=== PATIENT | male | born 1985 | race Caucasian/White ===

== ENCOUNTER 2020-08-01 11:43 | Observation (INO) ==
[2020-08-01] MEDS ORDERED: LORazepam 1 MG TAB SL STA (12:34)
[2020-08-01] MEDS ORDERED: SODIUM CHLORIDE 0.9% 1000ML 1,000 ML IV ONE (12:34)
--- NOTE | 2020-08-01 12:54 | XRay Report ---
XR chest 1V portable CLINICAL HISTORY: dizzy VERTIGO COMPARISON STUDY: No previous studies for comparison. FINDINGS: The cardiac and mediastinal contours are normal. There is no evidence of focal pulmonary co nsolidation. There is no evidence of failure. No pleural effusions are visualized.[ IMPRESSION: No active disease in the chest. ACT 112: Negative or not required by law. Electronically signed by: Bull Lazcano M.D. 08/01/2020 12:53 PM
[2020-08-01 12:57] LABS: Basophils # (auto) 0.01 K/uL (0-0.2); Basophils % (auto) 0.2 %; Eosinophils # (auto) 0.02 K/uL (0-0.5); Eosinophils % (auto) 0.4 %; Hemoglobin 15.6 g/dL (14.0-18.0); Immature Granulocytes # (auto) 0.02 K/uL (0.00-0.02); Immature Granulocytes % (auto) 0.4 %; Lymphocytes % (auto) 18.4 %; Mean Corpuscular Hemoglobin 30.4 pg (25-34); Mean Corpuscular Hgb Conc 35.5 g/dL (32-36); Mean Corpuscular Volume 85.6 fL (80-100); Mean Platelet Volume 10.4 fL (7.4-10.4); Monocytes # (auto) 0.25 K/uL (0.11-0.59); Monocytes % (auto) 4.6 %; Neutrophils # (auto) 4.14 K/uL (1.4-6.5); Platelet Count 176 K/uL (130-400); RDW Coefficient of Variation 11.8 % (11.5-14.5); Red Blood Count 5.14 M/uL (4.7-6.1); White Blood Count 5.44 K/uL (4.8-10.8)
--- NOTE | 2020-08-01 12:58 | Emergency Department Note ---
History of Present Illness General Chief complaint: Vertigo Stated complaint: CHEST PAIN History of Present Illness Maximum Pain Intensity: 0 This patient is a 35-year-old male who presents ambulatory to the emergency department for evaluation of heart palpitations and headaches that started around 10:00 this morning. He had a similar episode last week. He denies any recent trauma. He denies any chest pain or shortness of breath. No recent illnesses reported. He denies any drug use. No fever reported. Prior to last week, he has never had similar episodes. Home Medications Medication Instructions Recorded Confirmed Type wkgbirv-styjvojvjxxme-hcbhtybd 1 tab PO Q6H PRN 08/01/20 08/01/20 History [Excedrin Migraine] Allergies Allergy/AdvReac Type Severity Reaction Status Date / Time No Known Allergies Allergy Unverified 08/01/20 14:09 Past Med/Surg History Medical History No pertinent past medical history Surgical History No pertinent past surgical history Family History Brother Hypertension onset at latest age 31 Brother Hypertension in 30s Denies family history of Kidney disease Social History Smoking Status: Never smoker Feels Safe at Home: Yes Review of Systems A total of 10 systems reviewed and were otherwise negative Physical Exam Vital Signs Vital Signs - 24 hr 08/01/20 11:45 08/01/20 12:07 08/01/20 12:30 Temperature 36.4 C L Temperature Source Temporal Artery Scan Pulse Rate 100 H 85 Pulse Rate [Apical] 93 H Pulse Rate from SpO2 Sensor 89 Respiratory Rate 18 17 18 Respiratory Effort / Characteristics Non-Labored Respiratory Depth Normal Blood Pressure 171/75 H 160/91 H Blood Pressure [Left Arm] 148/87 H Blood Pressure Mean 107 114 Blood Pressure Mean [Left Arm] 107 Pulse Oximetry 100 100 100 Oxygen Delivery Method Room Air Room Air Sepsis Recent Fever Within 48 Hours No Sepsis New/Unexplained Change in Mental Status No Sepsis Action Taken by Nursing No Action Required 08/01/20 13:00 08/01/20 14:12 08/01/20 14:30 Temperature Temperature Source Pulse Rate 70 83 86 Pulse Rate [Apical] Pulse Rate from SpO2 Sensor 71 84 84 Respiratory Rate 15 14 16 Respiratory Effort / Characteristics Respiratory Depth Blood Pressure 123/81 141/75 H 156/102 H Blood Pressure [Left Arm] Blood Pressure Mean 95 97 120 Blood Pressure Mean [Left Arm] Pulse Oximetry 99 97 98 Oxygen Delivery Method Room Air Room Air Room Air Sepsis Recent Fever Within 48 Hours Sepsis New/Unexplained Change in Mental Status Sepsis Action Taken by Nursing 08/01/20 15:00 08/01/20 15:30 08/01/20 16:00 Temperature Temperature Source Pulse Rate 94 H 83 84 Pulse Rate [Apical] Pulse Rate from SpO2 Sensor 95 H 82 86 Respiratory Rate 17 12 13 Respiratory Effort / Characteristics Respiratory Depth Blood Pressure 171/113 H 145/91 H 163/82 H Blood Pressure [Left Arm] Blood Pressure Mean 132 109 109 Blood Pressure Mean [Left Arm] Pulse Oximetry 100 98 97 Oxygen Delivery Method Room Air Room Air Sepsis Recent Fever Within 48 Hours Sepsis New/Unexplained Change in Mental Status Sepsis Action Taken by Nursing Constitutional WD/WN, vitals as above Slightly anxious in appearance. Eyes EOM intact bilaterally ENMT external ear and nose normal, oropharynx normal Neck trachea midline Respiratory normal respiratory effort, lungs clear to auscultation Cardiovascular RRR, no murmur, no edema Gastrointestinal (Abdomen) normal bowel sounds, soft, nontender, no hepatosplenomegaly Musculoskeletal no cyanosis or clubbing, extremities motor strength 5/5 Skin no rashes, warm and dry Neurologic Alert and oriented x3. Cranial nerves grossly intact. Cerebellar function intact. No focal motor deficits. Psychiatric Acting appropriately Course Course Patient was seen and examined Vital signs including blood pressure were reviewed medications list was verified with patient Labs were obtained, and a saline lock was established An order was placed for continuous cardiac monitoring. The monitor shows a rate of 85 with normal sinus rhythm." EKG was performed and reviewed. Imaging was performed and reviewed. The patient was medicated. Upon reevaluation, patient was slightly more comfortable. We discussed his results. He voiced understanding. The case was then discussed with pharmacy. She was started on sodium phosphate. I then discussed the case with my supervising physician in addition to the admitting team. They agreed to evaluate the patient for likely inpatient management Consultations Consultation #1: [facility] Administered Medications Sodium Phosphate 30 mmol/ (Sodium Chloride) 510 mls @ 102 mls/hr IV NOW ONE Stop: 08/01/20 19:14 Last Admin: 08/01/20 14:45 Dose: 102 mls/hr Documented by: [id number] Discontinued Medications Sodium Chloride (Nss 1000ml) 1,000 mls @ 999 mls/hr IV .Q1H1M ONE Stop: 08/01/20 13:34 Last Infusion: 08/01/20 13:56 Dose: 0 mls/hr Documented by: [id number] Admin: 08/01/20 12:55 Dose: 999 mls/hr Documented by: [id number] Ioversol (Optiray 320 125ml) 104 ml IV ONCE ONE Stop: 08/01/20 13:33 Last Admin: 08/01/20 13:33 Dose: 104 ml Documented by: [id number] Lorazepam (Lorazepam 1 Mg Tab) 1 mg SL NOW STA Stop: 08/01/20 12:35 Last Admin: 08/01/20 12:55 Dose: 1 mg Documented by: [id number] Medical Decision Making Medical Records Attestation: I reviewed the patient's medical records. Home Medications Current Medication List: was personally reviewed by me Laboratory Data Attestation: I reviewed the patient's lab results. Result diagrams: 08/01/20 12:20 08/01/20 12:20 Lab Results 08/01/20 08/01/20 08/01/20 Range/Units 12:20 12:20 12:20 WBC 5.44 (4.8-10.8) K/uL RBC 5.14 (4.7-6.1) M/uL Hgb 15.6 (14.0-18.0) g/dL Hct 44.0 (42-52) % MCV 85.6 (80-100) fL MCH 30.4 (25-34) pg MCHC 35.5 (32-36) g/dL RDW Std Deviation 37.0 (36.4-46.3) fL RDW Coeff of Theodore 11.8 (11.5-14.5) % Plt Count 176 (130-400) K/uL MPV 10.4 (7.4-10.4) fL Immature Gran % (Auto) 0.4 % Neut % (Auto) 76.0 % Lymph % (Auto) 18.4 % [place] % (Auto) 4.6 % Eos % (Auto) 0.4 % Baso % (Auto) 0.2 % Neut # (Auto) 4.14 (1.4-6.5) K/uL Lymph # (Auto) 1.00 L (1.2-3.4) K/uL [place] # (Auto) 0.25 (0.11-0.59) K/uL Eos # (Auto) 0.02 (0-0.5) K/uL Baso # (Auto) 0.01 (0-0.2) K/uL Immature Gran # (Auto) 0.02 (0.00-0.02) K/uL PT 10.5 (9.0-12.0) Seconds INR 1.0 (0.9-1.1) Sodium 138 (136-145) mmol/L Potassium 4.2 (3.5-5.1) mmol/L Chloride 107 (98-107) mmol/L Carbon Dioxide 24 (21-32) mmol/L Anion Gap 7.0 (3-11) BUN 14 (7-18) mg/dl Creatinine 1.33 (0.6-1.4) mg/dl Est Cr Clr Drug Dosing 92.5 ml/min Est GFR ( Amer) 79.7 Est GFR (Non-Af Amer) 68.8 BUN/Creatinine Ratio 10.4 (10-20) Glucose 148 H (70-99) mg/dl Calcium 9.1 (8.5-10.1) mg/dl Phosphorus 0.7 L* (2.5-4.9) mg/dl Magnesium 1.7 L (1.8-2.4) mg/dl Total Bilirubin 0.5 (0.2-1) mg/dl AST 25 (15-37) U/L ALT 38 (12-78) U/L Alkaline Phosphatase 80 (45-117) U/L Total Creatine Kinase (39-308) U/L Troponin I 0.050 H* (0-0.045) ng/ml Total Protein 7.0 (6.4-8.2) gm/dl Albumin 4.0 (3.4-5.0) gm/dl Globulin 3.0 (2.5-4.0) gm/dl Albumin/Globulin Ratio 1.3 (0.9-2) TSH 2.140 (0.300-4.500) uIu/ml COVID-19 Eval Order SARS-CoV-2 (PCR) (Negative) Influenza Type A (PCR) (Neg) Influenza Type B (PCR) (Neg) RSV (RT-PCR) (Neg) 08/01/20 08/01/20 08/01/20 Range/Units 12:20 14:14 14:14 WBC (4.8-10.8) K/uL RBC (4.7-6.1) M/uL Hgb (14.0-18.0) g/dL Hct (42-52) % MCV (80-100) fL MCH (25-34) pg MCHC (32-36) g/dL RDW Std Deviation (36.4-46.3) fL RDW Coeff of Theodore (11.5-14.5) % Plt Count (130-400) K/uL MPV (7.4-10.4) fL Immature Gran % (Auto) % Neut % (Auto) % Lymph % (Auto) % [place] % (Auto) % Eos % (Auto) % Baso % (Auto) % Neut # (Auto) (1.4-6.5) K/uL Lymph # (Auto) (1.2-3.4) K/uL [place] # (Auto) (0.11-0.59) K/uL Eos # (Auto) (0-0.5) K/uL Baso # (Auto) (0-0.2) K/uL Immature Gran # (Auto) (0.00-0.02) K/uL PT (9.0-12.0) Seconds INR (0.9-1.1) Sodium (136-145) mmol/L Potassium (3.5-5.1) mmol/L Chloride (98-107) mmol/L Carbon Dioxide (21-32) mmol/L Anion Gap (3-11) BUN (7-18) mg/dl Creatinine (0.6-1.4) mg/dl Est Cr Clr Drug Dosing ml/min Est GFR ( Amer) Est GFR (Non-Af Amer) BUN/Creatinine Ratio (10-20) Glucose (70-99) mg/dl Calcium (8.5-10.1) mg/dl Phosphorus (2.5-4.9) mg/dl Magnesium (1.8-2.4) mg/dl Total Bilirubin (0.2-1) mg/dl AST (15-37) U/L ALT (12-78) U/L Alkaline Phosphatase (45-117) U/L Total Creatine Kinase 214 (39-308) U/L Troponin I (0-0.045) ng/ml Total Protein (6.4-8.2) gm/dl Albumin (3.4-5.0) gm/dl Globulin (2.5-4.0) gm/dl Albumin/Globulin Ratio (0.9-2) TSH (0.300-4.500) uIu/ml COVID-19 Eval Order CovFluRsv at [facility] SARS-CoV-2 (PCR) NEGATIVE (Negative) Influenza Type A (PCR) Negative (Neg) Influenza Type B (PCR) Negative (Neg) RSV (RT-PCR) Negative (Neg) Imaging Data Attestation: I personally reviewed and interpreted this imaging study as follows: Radiologist's Impression: Head CTA 08/01/20 12:34 CT angio head wo/w CT DOSE: 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 CT angiography was then performed a dynamic helical fashion during intravenous administration of 104 cc of Optiray 320. MIP images were acquired. A dose lowering technique was utilized adhering to the principles of ALARA. COMPARISON STUDY: None. FINDINGS: The noncontrast head CT, there are no intra or extra-axial mass lesions. There is no CT evidence of acute cortical infarction. There is no midline shift. There is no acute hemorrhage. There are no calvarial fractures. There is no hydrocephalus. There is no evidence of acute sinusitis. CT angiographic images reveal no evidence for aneurysm. There are no major intracranial branch occlusions. There is no evidence of intracranial stenosis. There is no evidence of dural venous sinus thrombosis. IMPRESSION: 1. Normal study ACT 112: Negative or not required by law. Electronically signed by: Bull Lazcano M.D. 08/01/2020 1:47 PM Neck CTA 08/01/20 12:34 CT angio neck with con CLINICAL HISTORY: Dizziness, headache. COMPARISON STUDY: No previous studies for comparison. TECHNIQUE: CT angiography was performed from the aortic arch to the skull base. MIP imaging was performed. The patient was scanned in a dynamic helical fashion during intravenous administration of 104 cc of Optiray. A dose lowering technique was utilized adhering to the principles of ALARA. CT DOSE: 1220.88 mGy.cm Technique: CT angiogram of the carotid and vertebral arteries was obtained using intravenous contrast and 3-D reconstruction. NASCET criteria was utilized. Findings: The right carotid revealed no evidence of aneurysm and no evidence of dissection. There is no evidence of hemodynamic significant stenosis. The left carotid revealed no evidence of hemodynamic significant stenosis. There is no evidence of aneurysm. There is no evidence of dissection. There is no evidence of hemodynamically significant vertebral stenosis. There is no evidence of vertebral dissection. IMPRESSION: No evidence of hemodynamically significant carotid or vertebral artery stenosis. No evidence of dissection. ACT 112: Negative or not required by law. Electronically signed by: Bull Lazcano M.D. 08/01/2020 1:44 PM Chest X-Ray 08/01/20 12:36 XR chest 1V portable CLINICAL HISTORY: dizzy VERTIGO COMPARISON STUDY: No previous studies for comparison. FINDINGS: The cardiac and mediastinal contours are normal. There is no evidence of focal pulmonary consolidation. There is no evidence of failure. No pleural effusions are visualized.[ IMPRESSION: No active disease in the chest. ACT 112: Negative or not required by law. Electronically signed by: Bull Lazcano M.D. 08/01/2020 12:53 PM ECG Data Attestation: I personally reviewed and interpreted this ECG as follows: Indication: + palpitations Rate (beats per minute): 95 Rhythm: + normal sinus Additional Comments: Slight ST depression noted in lead III and aVF. No ectopy noted. No prior for comparison. Blood Pressure Blood Pressure Findings: Elevated blood pressure Blood Pressure Disposition: elevated BP felt to be situational MDM Narrative Differential diagnosis: Intracranial abnormality, aneurysm, cardiac arrhythmia, electrolyte abnormality, dehydration, anxiety, cardiac ischemia, among others were considered This patient is a 35-year-old male who presents emergency department complaining of heart palpitations and intermittent headaches over the last week. On exam, he was slightly hypertensive. Otherwise, his vital signs were stable. He was neurovascularly intact. Labs were performed. The patient's phosphorus is significantly low as it is troponin was slightly elevated. EKG shows slightly abnormalities in the inferior leads. Imaging was unremarkable. No prior for comparison. I did not feel comfortable sending this patient home. The patient will be evaluated for likely inpatient management. [place] stable in the em ergency department. Impression & Plan Heart palpitations, Headache, Hypophosphatemia Discharge Plan Visit Data Chief Complaint: Vertigo Stated Complaint: CHEST PAIN ED Provider: Chau Knutson ED Midlevel Provider: Jemma Owusu Discharge Problem: Heart palpitations, Headache, Hypophosphatemia Patient Disposition: Admitted As Inpatient Condition: Fair Forms Stand Alone Forms: [email or web address] Prescriptions Prescriptions: No Action Excedrin Migraine 250-250-65 mg Tablet 1 tab PO Q6H PRN (Reason: Headache) RF: 0 Referrals Referrals: Waldo Santillan MD [Primary Care Provider] -
[2020-08-01 13:03] LABS: BUN Creatinine Ratio 10.4 (10-20); Calcium 9.1 mg/dl (8.5-10.1); Creatinine Clr Calc Pharmacy 92.5 ml/min; Est GFR (African American) 79.7; Est GFR (Non-African American) 68.8; Magnesium 1.7 mg/dl (1.8-2.4); Potassium 4.2 mmol/L (3.5-5.1)
[2020-08-01 13:08] LABS: Prothrombin Time 10.5 Seconds (9.0-12.0)
[2020-08-01 13:24] LABS: Albumin Globulin Ratio 1.3 (0.9-2); Bilirubin,Total 0.5 mg/dl (0.2-1); Phosphorus 0.7 mg/dl (2.5-4.9); Thyroid Stimulating Hormone 2.14 uIu/ml (0.300-4.500); Troponin I 0.05 ng/ml (0-0.045)
[2020-08-01] MEDS ORDERED: OPTIRAY 320 125ml IV ONE (13:32)
--- NOTE | 2020-08-01 13:45 | CT Scan Report ---
CT angio neck with con CLINICAL HISTORY: Dizziness, headache. COMPARISON STUDY: No previous studies for comparison. TECHNIQUE: CT angiography was performed from the aortic arch to the skull base. MIP imaging was perfo rmed. The patient was scanned in a dynamic helical fashion during intravenous administration of 104 c c of Optiray. A dose lowering technique was utilized adhering to the principles of ALARA. CT DOSE: 1220.88 mGy.cm Technique: CT angiogram of the carotid and vertebral arteries was obtained using intravenous contrast and 3-D reconstruction. NASCET criteria was utilized. Findings: The right carotid revealed no evidence of aneurysm and no evidence of dissection. There is no evidenc e of hemodynamic significant stenosis. The left carotid revealed no evidence of hemodynamic significant stenosis. There is no evidence of an eurysm. There is no evidence of dissection. There is no evidence of hemodynamically significant vertebral stenosis. There is no evidence of verte bral dissection. IMPRESSION: No evidence of hemodynamically significant carotid or vertebral artery stenosis. No evidence of disse ction. ACT 112: Negative or not required by law. Electronically signed by: Bull Lazcano M.D. 08/01/2020 1:44 PM
--- NOTE | 2020-08-01 13:48 | CT Scan Report ---
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 CT angiography was then performed a dynamic hel ical fashion during intravenous administration of 104 cc of Optiray 320. MIP images were acquired. A dose lowering technique was utilized adhering to the principles of ALARA. COMPARISON STUDY: None. FINDINGS: The noncontrast head CT, there are no intra or extra-axial mass lesions. There is no CT evidence of a cute cortical infarction. There is no midline shift. There is no acute hemorrhage. There are no rambo rial fractures. There is no hydrocephalus. There is no evidence of acute sinusitis. CT angiographic images reveal no evidence for aneurysm. There are no major intracranial branch occlus ions. There is no evidence of intracranial stenosis. There is no evidence of dural venous sinus throm bosis. IMPRESSION: 1. Normal study ACT 112: Negative or not required by law. Electronically signed by: Bull Lazcano M.D. 08/01/2020 1:47 PM
[2020-08-01] MEDS ORDERED: SODIUM PHOSPHATE 30 MMOL in SODIUM CHLORIDE 0.9% 500 ML IV ONE (14:15)
[2020-08-01 15:15] LABS: Influenza A virus by PCR Negative (Neg); Influenza B virus by PCR Negative (Neg); RSV by PCR Negative (Neg); SARS CoV2 RNA(COVID-19) InHosp NEGATIVE (Negative)
--- NOTE | 2020-08-01 15:32 | History & Physical Report ---
Date of Service August 01, 2020 Assessment & Plan (1) Heart palpitations: (2) Chest heaviness: (3) Headache: (4) Hypomagnesemia: (5) Hypophosphatemia: (6) Lymphopenia: (7) DVT prophylaxis: Patient will be inpatient status, a 2D echo has been ordered, repeat EKG in the morning, free T3 and T4, vitamin D level, urinalysis, serial troponins, replete magnesium and phosphorus, nephrology and cardiology consult, tickborne illness titers, as needed propranolol, SCDs and subcu heparin. Physical Exam Gen-AAO x 3, NAD, Afebrile, very fit Head-NCAT, EOMI, PERRLA, Anicteric Sclera, No Posterior Pharyngeal Erythema Neck-Supple, No JVD, No Thyromegaly, No Masses, No LAD, No Bruits Lungs-Clear to Auscultation Bilaterally, No Rales, No Rhonchi, No Wheezing, No Crepitus Chest-No S4, +S1, +S2, No S3, No Murmurs, No Rubs, No Gallops, No Ectopy Abdomen-Soft, Bowel Sounds Present, Non Tender, Non Distended, No Hepatomegaly, No Splenomegaly, No Palpable Masses, No Rebound, No Rigidity, No Guarding Musculoskeletal-Full Range of Motion Bilaterally, No CVAT Extremities-No Cyanosis, No Clubbing, No Edema Nuero-Cranial Nerves II-XII grossly intact, Motor WNL, DTRs WNL, Strength WNL, Non Focal Psych-Normal Mood, does not seem anxious to me History of Present Illness Chief Complaint: Palpitations and chest heaviness Primary Care Provider: Waldo Santillan MD 34-year-old male with no significant past medical history presents with palpitations and chest heaviness. He says it began about 2 weeks ago when he gets these "attacks" where he feels his heart racing, and chest heaviness. On occasion he wakes up sweaty, short of breath, and with a racing heart. He says he feels it in his eyes, neck, fingers, and he feels like his heart is beating out of his chest. He says his pulse is usually generally low because he works out frequently. Occasionally he takes Unisom as a sleep aid otherwise does not take anything else. He plays soccer twice a week for an hour to an hour and a half, frequently exercises, does yoga, denies any family history of arrhythmias and he notes that he has headache in both temples when he has these attacks. Of note in the ER he was found to have a phosphorus of 0.7 and his magnesium was slightly below the low normal. Past medical historynone Past surgical historynone Family historymother is alive with hypothyroidism, father is alive and has had a recent stroke, hyperlipidemia, and hypertension, he has 4 brothers of which some have hypertension, he has 2 healthy daughters Social historyhe rarely drinks alcohol, he does not smoke, no drug use, no supplements, no energy drinks, eats a normal healthy diet. He is and his is at the bedside. He has a PhD in engineering. 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 Allergies Allergy/AdvReac Type Severity Reaction Status Date / Time No Known Allergies Allergy Unverified 08/01/20 14:09 Home Medications Medication Instructions Recorded Confirmed Type rkeadsk-zomnuljqdynps-ropoxoru 1 tab PO Q6H PRN 08/01/20 08/01/20 History [Excedrin Migraine] Past Med/Surg History Medical History No pertinent past medical history Social History Smoking Status: Never smoker Feels Safe at Home: Yes Review of Systems Review of Systems: ROS-positive bitemporal headaches during these attacks , positive visual Changes during attacks, No Nausea, No Vomiting, No Fever, No Chills, No Neck Pain or Stiffness, positive chest heaviness during attacks, positive palpitations, positive SOB, No VALENCIA, No Cough, No Sputum, No Wheezing, No Abdominal Pain, he noted an episode of diarrhea, No Hematemesis, No Hemopt ysis, No Unexpected Weight Loss, No Flank pain, No Melena, No Hematochezia, No Frequency, No Urgency, No Burning, No Hematuria, No Rashes, No Diaphoresis. Appetite is Normal Physical Exam Physical Exam: Physical Exam Gen-AAO x 3, NAD, Afebrile, very fit Head-NCAT, EOMI, PERRLA, Anicteric Sclera, No Posterior Pharyngeal Erythema Neck-Supple, No JVD, No Thyromegaly, No Masses, No LAD, No Bruits Lungs-Clear to Auscultation Bilaterally, No Rales, No Rhonchi, No Wheezing, No Crepitus Chest-No S4, +S1, +S2, No S3, No Murmurs, No Rubs, No Gallops, No Ectopy Abdomen-Soft, Bowel Sounds Present, Non Tender, Non Distended, No Hepatomegaly, No Splenomegaly, No Palpable Masses, No Rebound, No Rigidity, No Guarding Musculoskeletal-Full Range of Motion Bilaterally, No CVAT Extremities-No Cyanosis, No Clubbing, No Edema Nuero-Cranial Nerves II-XII grossly intact, Motor WNL, DTRs WNL, Strength WNL, Non Focal Psych-Normal Mood, does not seem anxious to me Results & Data Results & Data ([facility]) Vital Signs (Past 12 Hours) Vital Signs Temp Pulse Pulse Resp BP BP Pulse Ox 08/01/20 14:30 86 16 156/102 H 98 08/01/20 14:12 83 14 141/75 H 97 08/01/20 13:00 70 15 123/81 99 08/01/20 12:30 85 18 160/91 H 100 08/01/20 12:07 93 H 17 148/87 H 100 08/01/20 11:45 36.4 C L 100 H 18 171/75 H 100 Allergies No Known Allergies Allergy (Unverified 08/01/20 14:09) Height/Weight/Isolation Height 6 ft Weight 94.4 kg Chemistry 08/01/20 12:20 Sodium 138 Potassium 4.2 Chloride 107 Carbon Dioxide 24 Anion Gap 7.0 BUN 14 Creatinine 1.33 Glucose 148 H Code Status & VTE Plan Code Status Full VTE Prophylaxis Plan VTE Prophylaxis will be ordered: Yes
--- NOTE | 2020-08-01 16:34 | Nephrology Consultation ---
Date of Consultation August 01, 2020 Assessment & Plan (1) Hypophosphatemia: getting appropriate IV repletion. no clear cause in hx -will check renal osteodystrophy labs, fractional excretion of phos, sed rate -will recheck phos, mag, bmp later today -await cardiology comment; keep on heart monitor -ABG if hypophosphatemia not improving or of any tachypnea or hypoxia -recommend regular diet Present on Admission?: Yes (2) Hypomagnesemia: mag 1.7 > recheck ordered for 2000 Present on Admission?: Yes (3) Hypertension: may be situational and/or w/ lots of recent aspirin dosing and L NS on board. strong FH of premature HTN. he had a L of NS in ER -consider low dose beta will if persistent or if symptoms such as chest heaviness, confusion, focal numbness/weakness -- none currently -abd ultrasound to evaluate aorta ordered as well as proteinuria screen -- latter will be most useful if negative Present on Admission?: Yes (4) Heart palpitations: History of Present Illness Reason for Consultation: hypophosphatemia Requesting Physician: Dr Burton Attending Physician: Dr Burton History of Present Illness 35 y/o M whom I'm asked to see for hypophosphatemia after he came to the ER b/c he had heart palpitations with chest heaviness and a spell of feeling cold, clammy, and "close to losing consciousness" a few times this morning. Noted on arrival to have phos 0.7, mag 1.7, and otherwise essentially normal labs. Had a similar episode about 2 wks back which woke him from sleep. Has also been having "weird" and "bizarre" sensations on his head which he describes at times as headache but later states he's not happy w/ that description >> these have been happening daily and are 3-4 cm above his temples BL. not a/w nausea, photophobia, not waking him from sleep, not radiating > he has been taking between 1-4 excedrine migraine for this but only real relief he gets is w/ sleep. No significant PMH; has never stayed overnight is hospital, never had general anesthesia; takes no OP meds or supplements. He has never broken a bone apart from staving a finger once. No hx of kidney stones, thyroid issues; no chronic diarrhea or digestive issues though he did have a bout of diarrhea about a week ago for 3 days. He does not restrict his diet particularly and pretty much eats what his small children at home eat. He has been trying to drink more water lately though and to eat more bananas. He has 4 brothers 2 of whom were diagnosed with hypertension in their 30s. No FH of bone or metabolic diseases. 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 His is at bedside. He is getting IV phos as I evaluate him and feels a bit improved. Allergies Allergy/AdvReac Type Severity Reaction Status Date / Time No Known Allergies Allergy Unverified 08/01/20 14:09 Home Medications Medication Instructions Recorded Confirmed Type [id number] 1 tab PO Q6H PRN 08/01/20 08/01/20 History [Excedrin Migraine] Patient History Medical History (Updated 08/01/20 @ 16:27 by Zoë Torres MD, PhD) No pertinent past medical history Surgical History (Updated 08/01/20 @ 16:23 by Zoë Torres MD, PhD) No pertinent past surgical history Family History (Updated 08/01/20 @ 16:22 by Zoë Torres MD, PhD) Brother Hypertension onset at latest age 31 Brother Hypertension in 30s Denies family history of Kidney disease Social History Smoking Status: Never smoker Feels Safe at Home: Yes Review of Systems Review of Systems: All systems reviewed & are unremarkable except as noted in HPI & below Physical Exam Constitutional: well developed, well nourished, + acute distress (mild frustration/anxiety/irritability) and comfortable Eyes: EOM intact bilaterally ENMT: Ears: no external ear abnormality Nose: no external nose abnormality Mouth: oral mucous membranes not dry Neck: no nuchal rigidity Respiratory: normal respiratory effort Auscultation: lungs clear to auscultation bilaterally and + diminished lung sounds Cardiovascular: RRR, no murmur, no edema (hyperdynamic) Vessels: normal peripheral pulses, abdominal aortic pulse present and dorsalis pedis pulses present; no abdominal aortic bruit, no renal bruit and no temporal artery tenderness Extremities: normal capillary refill Gastrointestinal (Abdomen): Inspection/Auscultation: normal bowel sounds; abdomen not distended Percussion/Palpation: abdomen soft; abdomen nontender pulsatile area midline 4 cm epigastium Musculoskeletal: Extremities: strength 5/5 throughout Skin: no rashes, warm and dry Neurologic: webster, fluent speech, no tremor Psychiatric: Orientation: alert and oriented x 3 Eye Contact: good eye contact Speech: normal rate/rhythm/volume of speech Affect: + anxious affect Insight: good insight Judgement: good judgement Results & Data ([facility]) Vital Signs (Past 12 Hours) Vital Signs Temp Pulse Pulse Resp BP BP Pulse Ox 08/01/20 16:00 84 13 163/82 H 97 08/01/20 15:30 83 12 145/91 H 98 08/01/20 15:00 94 H 17 171/113 H 100 08/01/20 14:30 86 16 156/102 H 98 08/01/20 14:12 83 14 141/75 H 97 08/01/20 13:00 70 15 123/81 99 08/01/20 12:30 85 18 160/91 H 100 08/01/20 12:07 93 H 17 148/87 H 100 08/01/20 11:45 36.4 C L 100 H 18 171/75 H 100 Laboratory Results 08/01/20 12:20 08/01/20 12:20 and as above Diagnostic Findings head and neck CT angio unremarkable as is CXR
[2020-08-01] MEDS ORDERED: ONDANSETRON INJ 2 MG/ML 2 ML VIAL IV PRN (17:55)
[2020-08-01] MEDS ORDERED: LORazepam 0.5 MG TAB PO PRN (17:55)
[2020-08-01] MEDS ORDERED: PROPRANOLOL HCL 10 MG TAB PO PRN (17:55)
[2020-08-01] MEDS ORDERED: ACETAMINOPHEN 325 MG TAB PO PRN (17:55)
[2020-08-01] MEDS ORDERED: MAGNESIUM SULFATE / D5W 1 GM/100 ML BAG IV ONE (18:15)
[2020-08-01 18:54] LABS: BUN Creatinine Ratio 9.3 (10-20); Calcium 8.8 mg/dl (8.5-10.1); Creatinine Clr Calc Pharmacy 103.3 ml/min; Est GFR (African American) 91.2; Est GFR (Non-African American) 78.7; Potassium 3.9 mmol/L (3.5-5.1)
[2020-08-01 19:00] LABS: T4 Free Thyroxine 1.04 ng/dl (0.8-1.6); Troponin I 0.067 ng/ml (0-0.045)
[2020-08-01 19:03] LABS: T3 Free 3.6 pg/ml (2.3-4.2); Vitamin D, 25 Hydrox 26.1 ng/ml (30-100)
[2020-08-01 19:11] LABS: Lyme Ab IgG w/WB Rflx Negative (Negative); Lyme Ab IgM w/WB Rflx Negative (Negative)
[2020-08-01 19:34] LABS: Phosphorus 4.2 mg/dl (2.5-4.9)
--- NOTE | 2020-08-01 20:09 | Ultrasound Report ---
US AAA screening CLINICAL HISTORY: AAA screening COMPARISON STUDY: No previous studies for comparison. FINDINGS: There is no evidence of abdominal aortic aneurysm. The maxillary diameter is 2.5 cm. There is no evid ence for iliac artery aneurysm. Peak systolic velocity within the aorta was 139 cm/s. IMPRESSION: No evidence of abdominal aortic aneurysm. ACT 112: Negative or not required by law. Electronically signed by: Bull Lazcano M.D. 08/01/2020 8:07 PM
[2020-08-01 20:11] LABS: Appearance Urine Clear (Clear); Bilirubin Urine Negative (Negative); Blood Urine Negative (Negative); Color Urine Yellow; Glucose Urine UA Negative (Negative); Ketones Urine Negative (Negative); Leukocyte Esterase Urine Negative (Negative); Nitrite Urine Negative (Negative); Protein Urine Negative (Negative); Specific Gravity Urine 1.032 (1.000-1.030); Urobilinogen Urine Negative (Negative); pH Urine 7.5 (4.5-7.5)
[2020-08-01 20:31] LABS: Creatinine Urine Random 98.2 mg/dl; Protein Creatinine Ratio Urine 0.1 (0-0.2); Total Protein Urine Random 12.6 mg/dl (0-11.9)
[2020-08-01 20:32] LABS: Phosphorus Urine Random > 90.0 mg/dl
[2020-08-01] MEDS: MAGNESIUM OXIDE 400 MG TAB PO SCH (20:32)
[2020-08-01] MEDS: HEPARIN SOD 5,000 UNIT/0.5 ML VIAL SQ SCH (20:33)
[2020-08-02] MEDS: HEPARIN SOD 5,000 UNIT/0.5 ML VIAL SQ SCH (06:24)
--- NOTE | 2020-08-02 07:54 | Hospitalist Progress Note ---
Date of Service August 02, 2020 Assessment & Plan (1) Heart palpitations: (2) Chest heaviness: (3) Headache: (4) Hypomagnesemia: (5) Hypophosphatemia: (6) Lymphopenia: (7) DVT prophylaxis: Patient will be inpatient status, a 2D echo pending, monitor checks OK, repeat EKG today, free T3 and T4, vitamin D level is low, PTH elevated, urinalysis, serial troponins, replete magnesium and phosphorus, nephrology and cardiology on case, tickborne illness titers, as needed propranolol, SCDs and subcu heparin. Add Vit D3 5,000 IU Daily Feels fine today, went over results so far. Labs Checked Physical Exam Gen-AAO x 3, NAD, Afebrile, very fit Head-NCAT, EOMI, PERRLA, Anicteric Sclera, No Posterior Pharyngeal Erythema Neck-Supple, No JVD, No Thyromegaly, No Masses, No LAD, No Bruits Lungs-Clear to Auscultation Bilaterally, No Rales, No Rhonchi, No Wheezing, No Crepitus Chest-No S4, +S1, +S2, No S3, No Murmurs, No Rubs, No Gallops, No Ectopy Abdomen-Soft, Bowel Sounds Present, Non Tender, Non Distended, No Hepatomegaly, No Splenomegaly, No Palpable Masses, No Rebound, No Rigidity, No Guarding Musculoskeletal-Full Range of Motion Bilaterally, No CVAT Extremities-No Cyanosis, No Clubbing, No Edema Nuero-Cranial Nerves II-XII grossly intact, Motor WNL, DTRs WNL, Strength WNL, Non Focal Psych-Normal Mood, does not seem anxious to me Admission and Anticipated Discharge Date Admission Date: August 01, 2020 Results & Data Results & Data ([facility]) Vital Signs (Past 12 Hours) Vital Signs Temp Pulse Pulse Resp BP Pulse Ox 08/02/20 03:48 36.5 C 62 16 132/66 99 08/01/20 23:10 36.6 C 69 16 132/70 98 08/01/20 22:20 60
[2020-08-02] MEDS: MAGNESIUM OXIDE 400 MG TAB PO SCH (08:00)
[2020-08-02 08:01] LABS: Hematocrit (blood only) 44.5 % (42-52); Hemoglobin 15.5 g/dL (14.0-18.0); Mean Corpuscular Hemoglobin 30.6 pg (25-34); Mean Corpuscular Hgb Conc 34.8 g/dL (32-36); Mean Corpuscular Volume 87.9 fL (80-100); Mean Platelet Volume 10.3 fL (7.4-10.4); Platelet Count 167 K/uL (130-400); RDW Coefficient of Variation 12.3 % (11.5-14.5); RDW Standard Deviation 39.2 fL (36.4-46.3); Red Blood Count 5.06 M/uL (4.7-6.1); White Blood Count 4.48 K/uL (4.8-10.8)
[2020-08-02 08:22] LABS: Albumin Level 3.9 gm/dl (3.4-5.0); BUN Creatinine Ratio 10.5 (10-20); Calcium 9.3 mg/dl (8.5-10.1); Creatinine Clr Calc Pharmacy 109.8 ml/min; Est GFR (African American) 98.1; Est GFR (Non-African American) 84.7; Magnesium 2.4 mg/dl (1.8-2.4)
[2020-08-02 08:27] LABS: Albumin Globulin Ratio 1.4 (0.9-2); Bilirubin,Total 0.6 mg/dl (0.2-1); Globulin 2.8 gm/dl (2.5-4.0); Total Protein 6.7 gm/dl (6.4-8.2)
[2020-08-02] MEDS ORDERED: CHOLECALCIFEROL 1,000 UNITS 25 MCG TAB PO SCH (09:00)
--- NOTE | 2020-08-02 10:45 | Cardiology Consultation ---
Date of Consultation August 02, 2020 Assessment & Plan (1) Heart palpitations: On telemetry the patient has had no arrhythmias thus far. His echocardiogram reveals an anatomically normal heart. (2) Troponin level elevated: The patient troponin are just borderline elevated and after a series of 4 there is been no significant increase or decline that would indicate this to be acute coronary syndrome. His EKG is normal today. I think that this is a type II presentation. I would not recommend heparin at this time. With the patient's history of arrhythmias he could have a long-term event monitor after discharge. At this time I would recommend no additional cardiac testing. (3) Hypophosphatemia: This needs to be worked up and may actually be the principal reason for the patient's presentation. He may have a parathyroid abnormality with low phosphorus and vitamin D and an elevated PTH. History of Present Illness Attending Physician: El Burton DO History of Present Illness This is a healthy 35-year-old male patient who has a vigorous routine exercise program. He has minimal past medical history. Minimal risk factors for heart disease. He denies hypertension, diabetes, hypercholesterolemia or cigarette smoking. Over the past several weeks he has not felt well. He is had a racing heart and dizziness at times. He was brought to the emergency department by his after an episode of tachycardia and dizziness. After admission he is noted to have low phosphorus and vitamin D levels with an elevated PTH level. His EKG shows no acute changes. Cardiac markers are negative. Echocardiogram completed this admission shows essentially an anatomically normal heart. Allergies Allergy/AdvReac Type Severity Reaction Status Date / Time No Known Allergies Allergy Unverified 08/01/20 14:09 Home Medications Medication Instructions Recorded Confirmed Type [id number] 1 tab PO Q6H PRN 08/01/20 08/01/20 History [Excedrin Migraine] Patient History Medical History No pertinent past medical history Surgical History No pertinent past surgical history Family History Brother Hypertension onset at latest age 31 Brother Hypertension in 30s Denies family history of Kidney disease Social History Smoking Status: Never smoker Preferred Language: Zimbabwean Communication Ability: Effective Ecology Teacher Required: No Beliefs That Will Affect Care: None Current Living Situation: Spouse and Family Current Living Situation Comment: and children Feels Safe at Home: No Safety Concerns: Feels Safe At This Time Assistive Devices: None Review of Systems Review of Systems: All systems reviewed & are unremarkable except as noted in HPI & below Nothing additional to add. Physical Exam Physical Exam: General: no acute distress and stated age Head: normocephalic, no masses, lesions, tenderness or abnormalities Eyes: conjunctiva are pink and non-injected, sclera clear Neck: supple, no adenopathy, no bruits, normal jugular venous pulse, no hepatojugular reflux Chest: normal shape and normal respiratory effort Lungs: clear to auscultation and percussion Cardiac Exam: - regular rate & rhythm, no murmurs gallops or rubs - normal S1, normal S2 Pulses: 2(+) throughout Abdomen: abdomen soft, non-tender, no abnormal masses and no hepatosplenomegaly Musculoskeletal: no gait disturbance, no joint inflammation, no deforming arthritis Extremities: no edema and no cyanosis Neuro: grossly normal exam Results & Data ([facility]) Vital Signs (Past 12 Hours) Vital Signs Temp Pulse Resp BP Pulse Ox 08/02/20 03:48 36.5 C 62 16 132/66 99 08/01/20 23:10 36.6 C 69 16 132/70 98 Laboratory Results Laboratory Results - last 24 hr 08/01/20 08/01/20 08/01/20 12:20 12:20 12:20 WBC 5.44 RBC 5.14 Hgb 15.6 Hct 44.0 MCV 85.6 MCH 30.4 MCHC 35.5 RDW Std Deviation 37.0 RDW Coeff of Theodore 11.8 Plt Count 176 MPV 10.4 Immature Gran % (Auto) 0.4 Neut % (Auto) 76.0 Lymph % (Auto) 18.4 Caroline % (Auto) 4.6 Eos % (Auto) 0.4 Baso % (Auto) 0.2 Neut # (Auto) 4.14 Lymph # (Auto) 1.00 L Caroline # (Auto) 0.25 Eos # (Auto) 0.02 Baso # (Auto) 0.01 Immature Gran # (Auto) 0.02 ESR PT 10.5 INR 1.0 Sodium 138 Potassium 4.2 Chloride 107 Carbon Dioxide 24 Anion Gap 7.0 BUN 14 Creatinine 1.33 Est Cr Clr Drug Dosing 92.5 Est GFR ( Amer) 79.7 Est GFR (Non-Af Amer) 68.8 BUN/Creatinine Ratio 10.4 Glucose 148 H Calcium 9.1 Phosphorus 0.7 L* Magnesium 1.7 L Total Bilirubin 0.5 AST 25 ALT 38 Alkaline Phosphatase 80 Total Creatine Kinase Troponin I 0.050 H* Total Protein 7.0 Albumin 4.0 Globulin 3.0 Albumin/Globulin Ratio 1.3 25-OH Vitamin D Total TSH 2.140 Free T4 Free T3 PTH Intact Specimen Hemolysis Urine Color Urine Appearance Urine pH Ur Specific [place] Urine Protein Urine Glucose (UA) Urine Ketones Urine Blood Urine Nitrite Urine Bilirubin Urine Urobilinogen Ur Leukocyte Esterase Ur Random Creatinine U Random Total Protein Ur Random Phosphorus Protein/Creatinin Ratio Anaplasma Smear A. phagocytophilum DNA Lyme Disease IgG Ab Lyme Disease IgM Ab COVID-19 Eval Order SARS-CoV-2 (PCR) Influenza Type A (PCR) Influenza Type B (PCR) RSV (RT-PCR) 08/01/20 08/01/20 08/01/20 12:20 14:14 14:14 WBC RBC Hgb Hct MCV MCH MCHC RDW Std Deviation RDW Coeff of Theodore Plt Count MPV Immature Gran % (Auto) Neut % (Auto) Lymph % (Auto) Caroline % (Auto) Eos % (Auto) Baso % (Auto) Neut # (Auto) Lymph # (Auto) Caroline # (Auto) Eos # (Auto) Baso # (Auto) Immature Gran # (Auto) ESR PT INR Sodium Potassium Chloride Carbon Dioxide Anion Gap BUN Creatinine Est Cr Clr Drug Dosing Est GFR ( Amer) Est GFR (Non-Af Amer) BUN/Creatinine Ratio Glucose Calcium Phosphorus Magnesium Total Bilirubin AST ALT Alkaline Phosphatase Total Creatine Kinase 214 Troponin I Total Protein Albumin Globulin Albumin/Globulin Ratio 25-OH Vitamin D Total TSH Free T4 Free T3 PTH Intact Specimen Hemolysis Urine Color Urine Appearance Urine pH Ur Specific [place] Urine Protein Urine Glucose (UA) Urine Ketones Urine Blood Urine Nitrite Urine Bilirubin Urine Urobilinogen Ur Leukocyte Esterase Ur Random Creatinine U Random Total Protein Ur Random Phosphorus Protein/Creatinin Ratio Anaplasma Smear A. phagocytophilum DNA Lyme Disease IgG Ab Lyme Disease IgM Ab COVID-19 Eval Order [facility] at [facility] SARS-CoV-2 (PCR) NEGATIVE Influenza Type A (PCR) Negative Influenza Type B (PCR) Negative RSV (RT-PCR) Negative 08/01/20 08/01/20 08/01/20 18:04 18:04 18:04 WBC RBC Hgb Hct MCV MCH MCHC RDW Std Deviation RDW Coeff of Theodore Plt Count MPV Immature Gran % (Auto) Neut % (Auto) Lymph % (Auto) Caroline % (Auto) Eos % (Auto) Baso % (Auto) Neut # (Auto) Lymph # (Auto) Caroline # (Auto) Eos # (Auto) Baso # (Auto) Immature Gran # (Auto) ESR 1 PT INR Sodium Potassium Chloride Carbon Dioxide Anion Gap BUN Creatinine Est Cr Clr Drug Dosing Est GFR ( Amer) Est GFR (Non-Af Amer) BUN/Creatinine Ratio Glucose Calcium Phosphorus Magnesium Total Bilirubin AST ALT Alkaline Phosphatase Total Creatine Kinase Troponin I Total Protein Albumin Globulin Albumin/Globulin Ratio 25-OH Vitamin D Total 26.1 L TSH Free T4 Free T3 3.60 PTH Intact 107.0 H Specimen Hemolysis Urine Color Urine Appearance Urine pH Ur Specific [place] Urine Protein Urine Glucose (UA) Urine Ketones Urine Blood Urine Nitrite Urine Bilirubin Urine Urobilinogen Ur Leukocyte Esterase Ur Random Creatinine U Random Total Protein Ur Random Phosphorus Protein/Creatinin Ratio Anaplasma Smear A. phagocytophilum DNA Lyme Disease IgG Ab Lyme Disease IgM Ab COVID-19 Eval Order SARS-CoV-2 (PCR) Influenza Type A (PCR) Influenza Type B (PCR) RSV (RT-PCR) 08/01/20 08/01/20 08/01/20 18:04 18:04 18:04 WBC RBC Hgb Hct MCV MCH MCHC RDW Std Deviation RDW Coeff of Theodore Plt Count MPV Immature Gran % (Auto) Neut % (Auto) Lymph % (Auto) Caroline % (Auto) Eos % (Auto) Baso % (Auto) Neut # (Auto) Lymph # (Auto) Caroline # (Auto) Eos # (Auto) Baso # (Auto) Immature Gran # (Auto) ESR PT INR Sodium Potassium Chloride Carbon Dioxide Anion Gap BUN Creatinine Est Cr Clr Drug Dosing Est GFR ( Amer) Est GFR (Non-Af Amer) BUN/Creatinine Ratio Glucose Calcium Phosphorus Magnesium Total Bilirubin AST ALT Alkaline Phosphatase Total Creatine Kinase Troponin I Total Protein Albumin Globulin Albumin/Globulin Ratio 25-OH Vitamin D Total TSH Free T4 Free T3 PTH Intact Specimen Hemolysis Urine Color Urine Appearance Urine pH Ur Specific [place] Urine Protein Urine Glucose (UA) Urine Ketones Urine Blood Urine Nitrite Urine Bilirubin Urine Urobilinogen Ur Leukocyte Esterase Ur Random Creatinine U Random Total Protein Ur Random Phosphorus Protein/Creatinin Ratio Anaplasma Smear See Comment A. phagocytophilum DNA Pending Lyme Disease IgG Ab Negative Lyme Disease IgM Ab Negative COVID-19 Eval Order SARS-CoV-2 (PCR) Influenza Type A (PCR) Influenza Type B (PCR) RSV (RT-PCR) 08/01/20 08/01/20 08/01/20 18:04 19:50 19:50 WBC RBC Hgb Hct MCV MCH MCHC RDW Std Deviation RDW Coeff of Theodore Plt Count MPV Immature Gran % (Auto) Neut % (Auto) Lymph % (Auto) Caroline % (Auto) Eos % (Auto) Baso % (Auto) Neut # (Auto) Lymph # (Auto) Caroline # (Auto) Eos # (Auto) Baso # (Auto) Immature Gran # (Auto) ESR PT INR Sodium 141 Potassium 3.9 Chloride 110 H Carbon Dioxide 26 Anion Gap 4.0 BUN 11 Creatinine 1.19 Est Cr Clr Drug Dosing 103.3 Est GFR ( Amer) 91.2 Est GFR (Non-Af Amer) 78.7 BUN/Creatinine Ratio 9.3 L Glucose 95 Calcium 8.8 Phosphorus 4.2 D Magnesium 2.0 Total Bilirubin AST ALT Alkaline Phosphatase Total Creatine Kinase Troponin I 0.067 H* Total Protein Albumin Globulin Albumin/Globulin Ratio 25-OH Vitamin D Total TSH Free T4 1.04 Free T3 PTH Intact Specimen Hemolysis Urine Color Yellow Urine Appearance Clear Urine pH 7.5 Ur Specific Scotia 1.032 H Urine Protein Negative Urine Glucose (UA) Negative Urine Ketones Negative Urine Blood Negative Urine Nitrite Negative Urine Bilirubin Negative Urine Urobilinogen Negative Ur Leukocyte Esterase Negative Ur Random Creatinine 98.2 U Random Total Protein 12.6 H Ur Random Phosphorus > 90.0 Protein/Creatinin Ratio 0.1 Anaplasma Smear A. phagocytophilum DNA Lyme Disease IgG Ab Lyme Disease IgM Ab COVID-19 Eval Order SARS-CoV-2 (PCR) Influenza Type A (PCR) Influenza Type B (PCR) RSV (RT-PCR) 08/01/20 08/02/20 08/02/20 23:42 07:33 07:33 WBC 4.48 L RBC 5.06 Hgb 15.5 Hct 44.5 MCV 87.9 MCH 30.6 MCHC 34.8 RDW Std Deviation 39.2 RDW Coeff of Theodore 12.3 Plt Count 167 MPV 10.3 Immature Gran % (Auto) Neut % (Auto) Lymph % (Auto) Caroline % (Auto) Eos % (Auto) Baso % (Auto) Neut # (Auto) Lymph # (Auto) Caroline # (Auto) Eos # (Auto) Baso # (Auto) Immature Gran # (Auto) ESR PT INR Sodium 140 Potassium 4.0 Chloride 110 H Carbon Dioxide 27 Anion Gap 4.0 BUN 12 Creatinine 1.12 Est Cr Clr Drug Dosing 109.8 Est GFR ( Amer) 98.1 Est GFR (Non-Af Amer) 84.7 BUN/Creatinine Ratio 10.5 Glucose 89 Calcium 9.3 Phosphorus 3.0 D Magnesium 2.4 Total Bilirubin 0.6 AST 21 ALT 34 Alkaline Phosphatase 62 Total Creatine Kinase 155 Troponin I 0.059 H* Total Protein 6.7 Albumin 3.9 Globulin 2.8 Albumin/Globulin Ratio 1.4 25-OH Vitamin D Total TSH Free T4 Free T3 PTH Intact Specimen Hemolysis Urine Color Urine Appearance Urine pH Ur Specific [place] Urine Protein Urine Glucose (UA) Urine Ketones Urine Blood Urine Nitrite Urine Bilirubin Urine Urobilinogen Ur Leukocyte Esterase Ur Random Creatinine U Random Total Protein Ur Random Phosphorus Protein/Creatinin Ratio Anaplasma Smear A. phagocytophilum DNA Lyme Disease IgG Ab Lyme Disease IgM Ab COVID-19 Eval Order SARS-CoV-2 (PCR) Influenza Type A (PCR) Influenza Type B (PCR) RSV (RT-PCR) 08/02/20 07:33 WBC RBC Hgb Hct MCV MCH MCHC RDW Std Deviation RDW Coeff of Theodore Plt Count MPV Immature Gran % (Auto) Neut % (Auto) Lymph % (Auto) Caroline % (Auto) Eos % (Auto) Baso % (Auto) Neut # (Auto) Lymph # (Auto) Caroline # (Auto) Eos # (Auto) Baso # (Auto) Immature Gran # (Auto) ESR PT INR Sodium Potassium Chloride Carbon Dioxide Anion Gap BUN Creatinine Est Cr Clr Drug Dosing Est GFR ( Amer) Est GFR (Non-Af Amer) BUN/Creatinine Ratio Glucose Calcium Phosphorus Magnesium Total Bilirubin AST ALT Alkaline Phosphatase Total Creatine Kinase Troponin I 0.057 H* Total Protein Albumin Globulin Albumin/Globulin Ratio 25-OH Vitamin D Total TSH Free T4 Free T3 PTH Intact Specimen Hemolysis Urine Color Urine Appearance Urine pH Ur Specific [place] Urine Protein Urine Glucose (UA) Urine Ketones Urine Blood Urine Nitrite Urine Bilirubin Urine Urobilinogen Ur Leukocyte Esterase Ur Random Creatinine U Random Total Protein Ur Random Phosphorus Protein/Creatinin Ratio Anaplasma Smear A. phagocytophilum DNA Lyme Disease IgG Ab Lyme Disease IgM Ab COVID-19 Eval Order SARS-CoV-2 (PCR) Influenza Type A (PCR) Influenza Type B (PCR) RSV (RT-PCR) Medications Administered Current Inpatient Medications Acetaminophen (Acetaminophen 325 Mg Tab) 650 mg PO Q4H PRN PRN Reason: pain/fever Stop: 08/31/20 17:54 Heparin Sodium (Porcine) (Heparin Sod 5,000 Unit/0.5 Ml Vial) 5,000 units SQ Q8 [place] Stop: 08/31/20 21:59 Last Admin: 08/02/20 06:24 Dose: Not Given Documented by: Lorazepam (Lorazepam 0.5 Mg Tab) 0.5 mg PO Q8H PRN PRN Reason: Anxiety Stop: 08/31/20 17:54 Magnesium Oxide (Magnesium Oxide 400 Mg Tab) 400 mg PO DAILY [facility] Stop: 09/02/20 08:59 Ondansetron HCl (Ondansetron Inj 2 Mg/Ml 2 Ml Vial) 4 mg IV Q6H PRN PRN Reason: Nausea Stop: 08/31/20 17:54 Propranolol HCl (Propranolol Hcl 10 Mg Tab) 10 mg PO TID PRN PRN Reason: Blood Pressure - High Stop: 08/31/20 17:54 Vitamin D (Cholecalciferol 1,000 Units 25 Mcg Tab) 5,000 units PO QAM [place] Stop: 09/01/20 08:59 Last Admin: 08/02/20 09:39 Dose: 5,000 units Documented by:
--- NOTE | 2020-08-02 12:30 | Discharge Summary ---
Date of Service August 02, 2020 Admission HPI Per Admitting Provider 34-year-old male with no significant past medical history presents with palpitations and chest heaviness. He says it began about 2 weeks ago when he gets these "attacks" where he feels his heart racing, and chest heaviness. On occasion he wakes up sweaty, short of breath, and with a racing heart. He says he feels it in his eyes, neck, fingers, and he feels like his heart is beating out of his chest. He says his pulse is usually generally low because he works out frequently. Occasionally he takes Unisom as a sleep aid otherwise does not take anything else. He plays soccer twice a week for an hour to an hour and a half, frequently exercises, does yoga, denies any family history of arrhythmias and he notes that he has headache in both temples when he has these attacks. Of note in the ER he was found to have a phosphorus of 0.7 and his magnesium was slightly below the low normal. Past medical historynone Past surgical historynone Family historymother is alive with hypothyroidism, father is alive and has had a recent stroke, hyperlipidemia, and hypertension, he has 4 brothers of which some have hypertension, he has 2 healthy daughters Social historyhe rarely drinks alcohol, he does not smoke, no drug use, no supplements, no energy drinks, eats a normal healthy diet. He is and his is at the bedside. He has a PhD in engineering. 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 Admission Exam Per Admitting Provider ROS-No Headache, No Visual Changes, No Nausea, No Vomiting, No Fever, No Chills, No Neck Pain or Stiffness, No Chest Pain, No Palpitations, No SOB, No VALENCIA, No Cough, No Sputum, No Wheezing, No Abdominal Pain, No Diarrhea, No Hematemesis, No Hemoptysis, No Unexpected Weight Loss, No Flank pain, No Melena, No Hematochezia, No Frequency, No Urgency, No Burning, No Hematuria, No Rashes, No Diaphoresis. Appetite is Normal Physical Exam Gen-AAO x 3, NAD, Afebrile Head-NCAT, EOMI, PERRLA, Anicteric Sclera, No Posterior Pharyngeal Erythema Neck-Supple, No JVD, No Thyromegaly, No Masses, No LAD, No Bruits Lungs-Clear to Auscultation Bilaterally, No Rales, No Rhonchi, No Wheezing, No Crepitus Chest-No S4, +S1, +S2, No S3, No Murmurs, No Rubs, No Gallops, No Ectopy Abdomen-Soft, Bowel Sounds Present, Non Tender, Non Distended, No Hepatomegaly, No Splenomegaly, No Palpable Masses, No Rebound, No Rigidity, No Guarding Musculoskeletal-Full Range of Motion Bilaterally, No CVAT Extremities-No Cyanosis, No Clubbing, No Edema Nuero-Cranial Nerves II-XII grossly intact, Motor WNL, DTRs WNL, Strength WNL, Non Focal Psych-Normal Mood Principal Diagnosis Vitamin D Deficiency Secondary Hyperparathyroidism Hypophosphatemia Headaches Discharge Exam ROS-No Headache, No Visual Changes, No Nausea, No Vomiting, No Fever, No Chills, No Neck Pain or Stiffness, No Chest Pain, No Palpitations, No SOB, No VALENCIA, No Cough, No Sputum, No Wheezing, No Abdominal Pain, No Diarrhea, No Hematemesis, No Hemoptysis, No Unexpected Weight Loss, No Flank pain, No Melena, No Hematochezia, No Frequency, No Urgency, No Burning, No Hematuria, No Rashes, No Diaphoresis. Appetite is Normal Physical Exam Gen-AAO x 3, NAD, Afebrile Head-NCAT, EOMI, PERRLA, Anicteric Sclera, No Posterior Pharyngeal Erythema Neck-Supple, No JVD, No Thyromegaly, No Masses, No LAD, No Bruits Lungs-Clear to Auscultation Bilaterally, No Rales, No Rhonchi, No Wheezing, No Crepitus Chest-No S4, +S1, +S2, No S3, No Murmurs, No Rubs, No Gallops, No Ectopy Abdomen-Soft, Bowel Sounds Present, Non Tender, Non Distended, No Hepatomegaly, No Splenomegaly, No Palpable Masses, No Rebound, No Rigidity, No Guarding Musculoskeletal-Full Range of Motion Bilaterally, No CVAT Extremities-No Cyanosis, No Clubbing, No Edema Nuero-Cranial Nerves II-XII grossly intact, Motor WNL, DTRs WNL, Strength WNL, Non Focal Psych-Normal Mood Discharge Data Allergies Allergy/AdvReac Type Severity Reaction Status Date / Time No Known Allergies Allergy Unverified 08/01/20 14:09 Consultations 08/01/20 14:15 ED Decision to Admit Stat 08/01/20 17:55 Consult Cardiology Routine Consult Nephrology Routine Ordered Studies 08/01/20 12:34 CT angio head wo/w Stat CT angio neck with con Stat 08/01/20 16:32 US AAA screening Routine Current Diagnoses Lymphocytopenia (08/01/20) Other disorders of phosphorus metabolism (08/01/20) Hypomagnesemia (08/01/20) Essential (primary) hypertension (08/01/20) Palpitations (08/01/20) Other chest pain (08/01/20) Headache, unspecified (08/01/20) Encounter for prophylactic measures, unspecified (08/01/20) Allergies No Known Allergies Allergy (Unverified 08/01/20 14:09) Height/Weight/Isolation Height 6 ft Weight 94.4 kg Chemistry 08/01/20 08/01/20 08/02/20 12:20 18:04 07:33 Sodium 138 141 140 Potassium 4.2 3.9 4.0 Chloride 107 110 H 110 H Carbon Dioxide 24 26 27 Anion Gap 7.0 4.0 4.0 BUN 14 11 12 Creatinine 1.33 1.19 1.12 Glucose 148 H 95 89 Urinalysis 08/01/20 19:50 Urine Color Yellow Urine Appearance Clear Urine pH 7.5 Ur Specific Colo 1.032 H Urine Protein Negative Urine Glucose (UA) Negative Urine Ketones Negative Urine Blood Negative Urine Nitrite Negative Urine Bilirubin Negative Hospital Course (1) Heart palpitations: (2) Chest heaviness: (3) Headache: (4) Hypomagnesemia: (5) Hypophosphatemia: (6) Lymphopenia: (7) DVT prophylaxis: DC today, Cards to arrange monitor, 2D echo is normal, monitor checks OK, repeat EKG today, free T3 and T4 are normal, vitamin D level is low, PTH elevated, urinalysis has mild proteinuria, serial troponins are flat, We repleted ma gnesium and phosphorus, and started Vit D3, nephrology and cardiology will f/u OP, tickborne illness titers are pending. Feels fine today, went over results. Labs Checked Physical Exam Gen-AAO x 3, NAD, Afebrile, very fit Head-NCAT, EOMI, PERRLA, Anicteric Sclera, No Posterior Pharyngeal Erythema Neck-Supple, No JVD, No Thyromegaly, No Masses, No LAD, No Bruits Lungs-Clear to Auscultation Bilaterally, No Rales, No Rhonchi, No Wheezing, No Crepitus Chest-No S4, +S1, +S2, No S3, No Murmurs, No Rubs, No Gallops, No Ectopy Abdomen-Soft, Bowel Sounds Present, Non Tender, Non Distended, No Hepatomegaly, No Splenomegaly, No Palpable Masses, No Rebound, No Rigidity, No Guarding Musculoskeletal-Full Range of Motion Bilaterally, No CVAT Extremities-No Cyanosis, No Clubbing, No Edema Nuero-Cranial Nerves II-XII grossly intact, Motor WNL, DTRs WNL, Strength WNL, Non Focal Psych-Normal Mood, does not seem anxious to me Total Time Total Time Spent Total Time Spent (In Minutes): 45 mins Total Time Includes: Examination of the Patient, Discharge Planning, Medication Reconciliation and Communication With Other Providers Discharge Plan Discharge Items Patient Disposition: Home - Self-Care Reason For Visit: PALPITATIONS CHEST HEAVINESS Discharge Diagnosis: Vitamin D Deficiency Secondary Hyperparathyroidism Hypophosphatemia Headaches Condition on Discharge: Good Health Concerns: Recurrence of Attacks Activity: Resume your previous activity Lifting: Gradually increase as tolerated Lifting Comment: No resrictions Bathing: No limitations Sexual Activity: When tolerated Exercise Comment: No restrictions Driving/Machine Use: No limitations Weightbearing: Full weightbearing Non-emergency contact: Primary Care Provider, Machining And Assembly Supervisor and Wall Scraper Call non-emergency contact if: you have any medication questions and your symptoms worsen Follow-up/Referrals: Zoë Torres MD, PhD [Physician] - (Dr Torres or Dr Celis-First Opening with either ) Waldo Santillan MD [Primary Care Provider] - Uday Tobias, [Machining And Assembly Supervisor] - (Get set up for monitor) Diet: Regular Addtl Attending Provider Instructions: None Pending Studies at Discharge: No Stand-Alone Forms: My [facility] Medications and DC Order Prescriptions: New acetaminophen 325 mg Tablet 650 mg PO Q6H PRN (Reason: pain) Qty: 100 RF: 0 cholecalciferol (vitamin D3) 25 mcg (1,000 unit) Capsule 5,000 unit PO QAM Qty: 60 RF: 0 ibuprofen 200 mg capsule 600 mg PO Q6H PRN (Reason: pain) Qty: 90 RF: 0 alprazolam [Xanax] 0.25 mg tablet 0.25 mg PO BID PRN (Reason: anxiety) Qty: 30 RF: 0 propranolol 10 mg tablet 10 mg PO Q8H PRN (Reason: Anxiety, Blood Pressure, Palpitations) Qty: 30 RF: 2 Discontinued Excedrin Migraine 250-250-65 mg Tablet 1 tab PO Q6H PRN (Reason: Headache) RF: 0 Discharge Orders: Discharge Order (Routine); Ordered 08/02/20 Ordered By: El Burton Admission Data Admit Date/Time: 08/01/20 15:36 Attending Provider: El Burton Admit Provider: El Burton Primary Care Provider: Waldo Santillan Other Providers: El Burton ; Uday Tobias ; Zoë Torres
--- NOTE | 2020-08-02 16:31 | Nephrology Progress Note ---
Date of Service August 02, 2020 Assessment & Plan (1) Hypophosphatemia: resolved after IV repletion. work up complicated in that by the time urine studies were collected, phos had already normalized in serum. work up suggestive that he may have secondary Hyperparathyroidism from vitamin D defi ciency leading to urinary phos wasting, though urine studies as I mentioned not c/w this: best explanation so far is secondary HPTH. not a particularly severe D deficiency (technically only meets criteria for D insufficiency) to cause such severe phos wasting -ordered repeat urine studies since he has not had further phos repletion since yesterday and serum phos dropped a bit. D/C recs: -D3 5000 units daily -regular diet -I will order weekly bmp, mag, phos in [facility] -he should be seen in CKD clinic w/ myself or Dr Celis in 4-6 wks -home bp cuff should be validated w/ pcp -f/u cardiology recs -avoid nsaids for headaches >> use tylenol only +/- caffeine Care coordinated w/ Dr Burton (2) Hypomagnesemia: resolved w/ supplement (3) Hypertension: believe it's situational and/or w/ lots of recent aspirin dosing and L NS on board. strong FH of premature HTN. he had a L of NS in ER -- improved by yesterday evening HTN. Will monitor BP given hx after d/c. Reassuring though that no arrythmias on monitor ON -d/w Dr Burton > release home w/ no meds but w/ BP cuff for home to validate and then track home bp -abd ultrasound to evaluate aorta ordered as well as proteinuria screen -- latter will be most useful if negative which it is (4) Heart palpitations: Admission and Anticipated Discharge Date Admission Date: August 01, 2020 Subjective pt seen and evaluated at 1315. feels improved; still some of BL over his buddhist scalp tingling; no further mm twitching or weakness Review of Systems Review of Systems: All systems reviewed & are unremarkable except as noted in Subjective Physical Exam Constitutional: well developed, well nourished and comfortable; no acute distress Eyes: EOM intact bilaterally ENMT: Ears: no external ear abnormality Nose: no external nose abnormality Mouth: oral mucous membranes not dry Neck: no nuchal rigidity Respiratory: normal respiratory effort Auscultation: lungs clear to auscultation bilaterally and + diminished lung sounds Cardiovascular: RRR, no murmur, no edema Gastrointestinal (Abdomen): Inspection/Auscultation: normal bowel sounds; abdomen not distended Percussion/Palpation: abdomen soft; abdomen nontender Musculoskeletal: Extremities: strength 5/5 throughout Skin: no rashes, warm and dry Psychiatric: Orientation: alert and oriented x 3 Eye Contact: good eye contact Speech: normal rate/rhythm/volume of speech Affect: + anxious affect Insight: good insight Judgement: good judgement Results & Data ([facility]) Vital Signs (Past 12 Hours) Vital Signs Temp Pulse Pulse Resp BP Pulse Ox 08/02/20 13:33 36.8 C 63 19 144/83 H 99 08/02/20 11:20 36.8 C 63 19 144/83 H 99 08/02/20 09:00 66 Laboratory Results 08/02/20 07:33 08/02/20 07:33 phos wnl this am FEPhos yesterday evening 26% PTH 107, 25 OHD 26 ESR 1 Diagnostic Findings AAA u/s no aneurysm
--- NOTE | 2020-08-02 21:37 | Electrocardiogram Report ---
Test Reason : Blood Pressure : / mmHG Vent. Rate : 095 BPM Atrial Rate : 095 BPM P-R Int : 134 ms QRS Dur : 084 ms QT Int : 364 ms P-R-T Axes : 063 086 000 degrees QTc Int : 457 ms Normal sinus rhythm Possible Left atrial enlargement T wave abnormality, consider inferior ischemia Abnormal ECG No previous ECGs available Confirmed by Matt Rosario ([id number]) on 08/02/2020 9:37:34 PM Referred By: REFERRED SELF Confirmed By:Matt Rosario
--- NOTE | 2020-08-02 22:28 | Electrocardiogram Report ---
Test Reason : Blood Pressure : / mmHG Vent. Rate : 060 BPM Atrial Rate : 060 BPM P-R Int : 132 ms QRS Dur : 100 ms QT Int : 428 ms P-R-T Axes : 054 089 043 degrees QTc Int : 428 ms Normal sinus rhythm Nonspecific ST abnormality Abnormal ECG When compared with ECG of 01-AUG-2020 12:16, (unconfirmed) Vent. rate has decreased BY [address] elevation now present in Anterolateral leads T wave inversion no longer evident in Inferior leads Confirmed by Matt Rosario ([id number]) on 08/02/2020 10:28:36 PM Referred By: REFERRED SELF Confirmed By:Matt Rosario
--- NOTE | 2020-08-02 22:47 | Electrocardiogram Report ---
Test Reason : Blood Pressure : / mmHG Vent. Rate : 065 BPM Atrial Rate : 065 BPM P-R Int : 128 ms QRS Dur : 086 ms QT Int : 402 ms P-R-T Axes : 065 087 036 degrees QTc Int : 418 ms Normal sinus rhythm Normal ECG When compared with ECG of 02-AUG-2020 05:58, (unconfirmed) No significant change was found Confirmed by Matt Rosario ([id number]) on 08/02/2020 10:47:18 PM Referred By: REFERRED SELF Confirmed By:Matt Rosario
[2020-08-03] MEDS ORDERED: MAGNESIUM OXIDE 400 MG TAB PO SCH (09:00)
== END 2020-08-02 14:10 | disposition home or self-care (01) ==
LOC: EDBD → ED 11:43 → INTOOBSV 15:36 → 2W 15:36